=== PATIENT | female | born 2000 | race African-American/Black ===

== ENCOUNTER 2024-09-09 13:23 | Emergency (ER) | payer SELFPAY ==
[2024-09-09] MEDS ORDERED: Ketorolac Tromethamine 30 MG (1 mL) VIAL ONE (14:14)
[2024-09-09] MEDS ORDERED: predniSONE 20 MG TAB ONE (14:15)
== END 2024-09-09 14:20 | disposition home or self-care (01) ==
LOC: CSHERS 13:23
DX: J02.9 Acute pharyngitis, unspecified (principal); B97.89 Other viral agents as the cause of diseases classified elsewhere
CPT/HCPCS: 87081; 87428; 87430; 96372; 99283; J1885; J7512